=== PATIENT | male | born 1955 | race African-American/Black ===

== ENCOUNTER 2019-09-25 13:27 | Outpatient (CLI) | payer BC, SELFPAY ==
--- NOTE | ~2019-09-25 | CT_ITS ---
EXAMINATION:CT chest wo con DATE: 09/25/2019 14:10 INDICATION: Lung nodule. TECHNIQUE: Computed tomography (CT) of the chest was performed without intravenous contrast. Automate d exposure control and iterative reconstruction technique were employed. The dose-length product (DLP ) was 314.46 mGy-cm. COMPARISON: None. FINDINGS: The lungs demonstrate mild atelectasis. In the left upper lobe, there is a 1.2 cm part-yakov d nodule with 4 mm solid component. No pleural effusion. The heart size is normal. There are coronary artery calcifications. No pericardial effusion. There is mild bilateral gynecomastia. 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 There is an old healed fracture of right clavicle. There i s mild thoracic spondylosis. IMPRESSION: 1. 1.2 cm part-solid nodule in left lung upper lobe, probably benign. Noncontrast low-dose chest CT i s recommended in 6 months. Reviewed, dictated and finalized at location A. IMPRESSION: 1. 1.2 cm part-solid nodule in left lung upper lobe, probably benign. Noncontra st low-dose chest CT is recommended in 6 months.
== END 2019-09-25 13:28 ==
LOC: MICIMG 13:28
PROVIDERS: PCP Internal Medicine; Visit Provider Internal Medicine
DX: R93.89 Abnormal findings on diagnostic imaging of other specified body structures (principal)
CPT/HCPCS: 71250

== ENCOUNTER 2021-06-05 21:14 | Emergency (ER) | payer MEDICARE, SELFPAY ==
[2021-06-05] VITALS (7 sets, daily range): BP systolic 120–130; BP diastolic 65–66; PULSE 71–73; RESP 18; TEMP 36.5; O2SAT 99–100
--- NOTE | ~2021-06-05 | CT_ITS ---
EXAMINATION: CT pelvis w con DATE: 06/06/2021 01:08 INDICATION: Rectal bleeding. Rule out abscess. TECHNIQUE: Computed tomography (CT) of the pelvis was performed with 100 cc Omnipaque 350 intravenous contrast. The dose-length product was 240.01 mGy-cm. COMPARISON: None FINDINGS: Nonobstructive bowel gas pattern. No lymphadenopathy. No significant vascular abnormality. No focal bowel masses or inflammatory changes. Rectum within normal limits. Prostate gland mildly enl arged. Bladder is unremarkable. No free air or free fluid. Normal appendix. No acute bone or joint ab normality. IMPRESSION: 1. No acute abnormality of the pelvis. Reviewed, dictated and finalized at location A.
--- NOTE | 2021-06-05 22:25 | ED.GENADULT ---
HPI - General Adult General Chief complaint: GI Bleed <Kacie Martinez PA-C - Last Filed: 06/06/21 05:25> Stated complaint: possible hemmoroid <KEO Foy Last Filed: 06/06/21 05:25> Time Seen by Provider: 06/05/21 21:31 <Kacie Martinez PA-C - Last Filed: 06/06/21 05:25> Source: patient <KEO Foy Last Filed: 06/06/21 05:25> Mode of arrival: ambulatory <KEO Foy Last Filed: 06/06/21 05:25> Limitations: no limitations <KEO Foy Last Filed: 06/06/21 05:25> History of Present Illness HPI narrative: Patient is 66-year-old male who presents the ED with reports of rectal bleeding. Patient reports over the past 4 to 5 days, he has had bleeding when he wipes himself after a bowel movement. He states it is a small amount of bright red blood on the toilet paper. He denies seeing any bright red blood in his stool or any recent melena or maroon-colored stool. He denies any significant pain with having a bowel movement, but did report having occasional mild discomfort when sitting over the past couple days. Family member thought he may have hemorrhoids so he has been using Preparation H and Vaseline on his rectum and reports relief with this. He did notice bleeding again tonight which prompted him to come to the ED. Patient otherwise asymptomatic. Denies any abdominal pain, nausea, vomiting, diarrhea, recent constipation, fevers, chills, urinary symptoms, weakness. <Kacie Martinez PA-C - Last Filed: 06/06/21 05:25> Related Data Allergies/adverse reactions: Allergies Allergy/AdvReac Type Severity Reaction Status Date / Time No Known Allergies Allergy Unverified 02/12/19 08:04 <KEO Foy Last Filed: 06/06/21 05:25> Review of Systems Review of Systems: CONSTITUTIONAL: Denies fever, chills, or sweats. GASTROINTESTINAL: Reports rectal bleeding with wiping. Denies abdominal pain, nausea, vomiting, melena, or diarrhea. GENITOURINARY: Denies dysuria or hematuria. SKIN: Denies rash or itching. MUSCULOSKELETAL: Denies back pain, joint pain, or myalgia. NEUROLOGICAL: Denies weakness. <Kacie Martinez PA-C - Last Filed: 06/06/21 05:25> All systems reviewed & are unremarkable except as noted in HPI and below <Kacie Martinez PA-C - Last Filed: 06/06/21 05:25> PMFSH Past Medical History Medical History: Medical History Clavicle fracture CVA (cerebral vascular accident) Gout HTN (hypertension) Seasonal allergies <Kacie Martinez PA-C - Last Filed: 06/06/21 05:25> Surgical History Surgical History: Surgical History No significant past surgical history <Kacie Martinez PA-C - Last Filed: 06/06/21 05:25> Social History Social History: Social History Smoking status: Former smoker <Kacie Martinez PA-C - Last Filed: 06/06/21 05:25> Exam Narrative: GENERAL: Well appearing, well-nourished, non-toxic, in no acute distress. HEAD: Normocephalic, atraumatic. NECK: Supple. No adenopathy, no masses. RESPIRATORY: Airway patent, respirations nonlabored. Clear to auscultation bilaterally, no rales, rhonchi, wheezing. CARDIOVASCULAR: Regular rate and rhythm without murmurs, rubs, or gallops. Peripheral pulses 2+ and equal bilaterally. ABDOMINAL: Soft, nontender, nondistended, no hepatosplenomegaly. Normoactive BS. RECTAL: Normal tone. External skin tags and 2 small external hemorrhoids noted. No thrombosed hemorrhoids. No internal hemorrhoids palpation on [place]. Area of thickened skin at 2oclock region of anus, no induration, erythema, or fluctuance noted. Stool without gross blood. MUSCULOSKELETAL: Moves all extremities. Strength/ROM intact without gross deformities or TTP. No edema. No calf tenderness. SKIN: Warm, dry, normal color. No rashes. NEURO: A&O X3. Spe
[2021-06-05 23:54] LABS: Basophils Absolute Auto 0.1 K/mm3 (0.0-0.1); Basophils Percent Auto 0.9 % (0.2-1.2); Eosinophils Absolute Auto 0.2 K/mm3 (0-0.3); Eosinophils Percent Auto 2.6 % (0-4.4); Hematocrit 38.1 % (42.0-52.0); Hemoglobin 12.3 g/dL (14.0-18.0); Immature Granulocyte Absolute 0.02 K/mm3 (0.00-0.031); Immature Granulocyte Percent A 0.3 % (0-0.5); Lymphocytes Absolute Auto 2.02 K/mm3 (0.9-3.2); Lymphocytes Percent Auto 30.8 % (18.3-44.2); Mean Corpuscular HGB Conc 32.3 g/dl (32-36); Mean Corpuscular Hemoglobin 29.6 pg (26-34); Mean Corpuscular Volume 91.6 fl (80-100); Mean Platelet Volume 10.8 fl (7.4-10.4); Monocytes Absolute Auto 0.5 K/mm3 (0.1-0.6); Monocytes Percent Auto 8.1 % (2.6-8.5); Neutrophils Absolute Auto 3.8 K/mm3 (1.3-6.7); Neutrophils Percent Auto 57.3 % (45.5-73.1); Platelet Count Result 245 k/mm3 (150-375); Red Blood Count 4.16 M/mm3 (4.6-6.20); Red Cell Distribution Width 13.6 % (11.5-14.5); White Blood Count 6.6 K/mm3 (4.5-10.0)
[2021-06-06] VITALS (15 sets, daily range): BP systolic 121–134; BP diastolic 67–74; PULSE 86; RESP 16; O2SAT 99–100
[2021-06-06 00:45] LABS: Alanine Aminotransferase 30 U/L (4-50); Albumin Level 4.2 g/dL (3.5-5.1); Alkaline Phosphatase 70 U/L (38-126); Anion Gap 9 mmol/L (8-16); Aspartate Amino Transferase 30 U/L (17-59); Bilirubin,Total 0.3 mg/dL (0.2-1.3); Blood Urea Nitrogen 15 mg/dL (9-20); Carbon Dioxide 27 mmol/L (22-30); Chloride 104 mmol/L (98-107); Estimated CRCL calculation 60 ml/min; Estimated Glomerular Filt Rate > 60; Glucose 96 mg/dL (65-110); Lipase 79 U/L (23-300); Potassium 3.4 mmol/L (3.4-5.0); Sodium 140 mmol/L (137-145)
== END 2021-06-06 02:37 | disposition home or self-care (01) ==
PROVIDERS: Physician Assistant; Emergency Provider Emergency Medicine; PCP Internal Medicine
DX: K64.4 Residual hemorrhoidal skin tags (principal); I10 Essential (primary) hypertension; M10.9 Gout, unspecified; Z86.73 Personal history of transient ischemic attack (TIA), and cerebral infarction without residual deficits; Z87.891 Personal history of nicotine dependence
CPT/HCPCS: 36415; 72193; 80053; 83690; 85025; 99284; Q9967